=== PATIENT | female | born 1980 | race Caucasian/White ===

== ENCOUNTER 2016-12-21 12:32 | Emergency (ER) | payer MEDICAID, OTHER ==
[~2016-12-21] VITALS: Ht 162.6 cm; Wt 86.4 kg
[~2016-12-21 12:32] MED LIST: IBUP-232 PO
[2016-12-21 12:44] VITALS: BP 129/85; PULSE 111; RESP 18; TEMP 98.8; O2SAT 98
[2016-12-21 12:54] LABS: BLOOD, URINE NEG (NEG); GLUCOSE,URINE NEG (NEG); KETONE, URINE NEG (NEG)
[2016-12-21 12:59] LABS: NITRITE,URINE POS (NEG)
[2016-12-21 13:00] LABS: BACTERIA, URINE MANY /hpf; METHOD OF COLLECTION CLEAN CATCH; URINE COLOR YELLOW (YELLW/STRAW)
[2016-12-21 13:01] LABS: COMMENT (UR) CULTURE INDICATED; CULTURE IF INDICATED CULTURE INDICATED
[2016-12-21] MEDS ORDERED: cogentin PO (13:39)
[2016-12-21] MEDS ORDERED: GABA300C5 PO (13:39)
[2016-12-21] MEDS ORDERED: SERO300T PO (13:39)
--- NOTE | 2016-12-21 13:52 | PD ---
HPI Chief Complaint: Flank/Kidney Pain Time Seen by Provider: 13:51 Travel History International Travel<30 days: No Contact w/Intl Traveler<30days: No Traveled to known affect area: No History of Present Illness HPI Patient is a 36-year-old female presenting to the emergency room evaluation of urinary frequency, dysuria, low back pain that has been ongoing for approximately one week. Patient states she has to urinate constantly. She reports mild nausea but no fevers, chills, abdominal pain, chest pain or shortness of breath. PFSH Past Medical History Hx Anticoagulant Therapy: No ADHD: Yes Anemia: Yes ( A CHILD) Asthma: Yes (as child ) Bipolar Disorder: Yes Anxiety: Yes Depression: Yes Heart Rhythm Problems: Yes Chemotherapy: No Chest Pain: Yes Cerebrovascular Accident: No Diminished Hearing: No Endocrine: No Gastrointestinal Disorders: Yes Genitourinary: Yes Hypertension: Yes Kidney Stones: Yes Musculoskeletal: Yes Neurologic: Yes Reproductive: No Respiratory: Yes Immunizations Current: No Schizophrenia: Yes Tetanus Vaccination: < 5 Years Influenza Vaccination: No ?: Not LMP: two weeks ago Menopausal: No : 3 Para: 2 Miscarriage: 1 : 0 Ovarian Cysts: Yes (RIGHT SIDE) Dilation and Curettage (D&C): Yes Tubal Ligation: Yes (2003) Past Surgical History Gynecologic Surgery: Yes (CERVICAL CIRCLAGE; BARTHOLIN CYST I&D MULTIPLE TIMES ON LEFT LABIA) Hysterectomy: No Oral Surgery: Yes (BLOOD CLOT REMOVED FROM TONGUE) Tonsillectomy: Yes Other Surgery: Yes (BLOOD CLOT REMOVED FROM TONGUE IN 2003) Social History Alcohol Use: No (UTO) Tobacco Use: Yes (1PPD.) Substance Use: Yes Allergies-Medications (Allergen,Severity, Reaction): Coded Allergies: *MDRO Multi-Drug Resistant Organism (Verified Adverse Reaction, Unknown, ) ESBL E.coli (urine) - 06/22/2016 & 07/20/16 Reported Meds & Prescriptions Reported Meds & Active Scripts Active Zofran (Ondansetron HCl) 4 Mg Tab 4 Mg PO Q6HR PRN 3 Days Pyridium (Phenazopyridine HCl) 200 Mg Tab 200 Mg PO Q8H PRN 3 Days Keflex (Cephalexin) 500 Mg Cap 500 Mg PO Q6H 7 Days Reported Gabapentin 300 Mg Cap 300 Mg PO BID [cogentin ] Unknown Dose PO BID Seroquel (Quetiapine Fumarate) 300 Mg Tab 300 Mg PO BID Review of Systems Except as stated in HPI: all other systems reviewed are Neg General / Constitutional: No: Fever, Chills Cardiovascular: No: Chest Pain or Discomfort Respiratory: No: Shortness of Breath Gastrointestinal: Positive: Nausea, No: Vomiting, Diarrhea, Abdominal Pain Genitourinary: Positive: Frequency, Dysuria, Flank Pain Physical Exam Narrative GENERAL: Well-nourished, well-developed patient. SKIN: Warm and dry. HEAD: Normocephalic. EYES: No scleral icterus. No injection or drainage. NECK: Supple, trachea midline. No JVD or lymphadenopathy. CARDIOVASCULAR: Regular rate and rhythm without murmurs, gallops, or rubs. RESPIRATORY: Breath sounds equal bilaterally. No accessory muscle use. GASTROINTESTINAL: Abdomen soft, non-tender, nondistended. MUSCULOSKELETAL: No cyanosis, or edema. BACK: Nontender without obvious deformity. Mild right CVA tenderness. Data Data Last Documented VS Vital Signs Date Time Temp Pulse Resp B/P Pulse Ox O2 Delivery O2 Flow Rate FiO2 12/21/16 14:14 92 18 122/61 97 12/21/16 12:44 98.8 Orders Urinalysis - C+S If Indicated (12/21/16 12:39) Ed Urine Pregnancytest Poc (12/21/16 12:39) Urine Culture (12/21/16 12:45) Ceftriaxone Inj (Rocephin Inj) (12/21/16 14:00) Ondansetron Odt (Zofran Odt) (12/21/16 14:00) Iv Access Insert/Monitor (12/21/16 13:52) Ceftriaxone Inj (Rocephin Inj) (12/21/16 14:00) Sodium Chlor 0.9% 1000 Ml Inj (Ns 1000 M (12/21/16 14:00) Labs Laboratory Tests Test 12/21/16 12:45 Urine Collection Type CLEAN CATCH Urine Color YELLOW Urine Turbidity SLIGHT Urine pH 6.0 Urine Specific [place] 1.011 Urine Protein NEG mg/dL Urine Glucose (UA) NEG mg/dL Urine Ketones NEG mg/dL Urine Occult Blood NEG Urine Nitrite POS Urine Bilirubin NEG Urine Leukocyte Esterase TRACE Urine WBC 6-8 /hpf Urine Squamous Epithelial 6-8 /hpf Cells Urine Bacteria MANY /hpf Microscopic Urinalysis Comment CULTURE INDICATED Urine Collection Time 12:45 [facility] Medical Decision Making Medical Screen Exam Complete: Yes Emergency Medical Condition: Yes Interpretation(s) Vital Signs Date Time Temp Pulse Resp B/P Pulse Ox O2 Delivery O2 Flow Rate FiO2 12/21/16 14:14 92 18 122/61 97 12/21/16 12:44 98.8 111 18 129/85 98 Differential Diagnosis Pyelonephritis versus urinary tract infection versus muscle strain versus spasm versus other Narrative Course Patient is a 36-year-old female presenting to the emergency department for evaluation of flank pain, frequency, dysuria. Symptoms ongoing for approximately one week. Patient has CVA tenderness on the right. Urinalysis is positive for nitrites. Patient will be given IV fluids and IV Rocephin in the emergency department. She was mildly tachycardic on arrival, repeat vitals show an improved heart rate. She is encouraged to maintain adequate fluid intake, complete full course of antibiotics as directed, follow up with her primary doctor. She is encouraged return to emergency department for any new or worsening symptoms. Patient verbalizes understanding of discharge instructions. Patient stable for discharge. The patient was told she was prescribed Keflex, she requested a different antibiotics stating that it never works for her. Patient was provided with a prescription for ciprofloxacin Diagnosis Primary Impression: UTI (urinary tract infection) Qualified Code: N39.0 - Urinary tract infection without hematuria, site unspecified Referrals: Primary Care Physician Patient Instructions: General Instructions, Urinary Tract Infection in Women ( ED) Additional Instructions: Increase fluid intake Complete full course of antibiotics as directed Return to emergency department meal a any new or worsening symptoms Follow-up with your primary doctor Med/Other Pt SpecificInfo: Prescription(s) given Scripts Ciprofloxacin 500 Mg [id number] Mg PO BID 7 Days Ref 0 Prov:Nichole Zee 12/21/16 Ondansetron (Zofran)4 Mg Tab4 Mg PO Q6HR PRN (NAUSEA OR VOMITING) 3 Days Ref 0 Prov:Nichole eZe 12/21/16 Phenazopyridine (Pyridium)200 Mg [id number] Mg PO Q8H PRN (DYSURIA) 3 Days Ref 0 Prov:Nichole Zee 12/21/16 Disposition: 01 DISCHARGE HOME Condition: Stable Nichole Zee Dec 21, 2016 13:52
[2016-12-21] MEDS ORDERED: cefTRIAXone INJ 2,000 MG in SODIUM CHLORIDE 0.9% INJ 100 ML IV ONE (14:00)
[2016-12-21] MEDS ORDERED: ONDANSETRON ODT 4 MG TAB PO ONE (14:00)
[2016-12-21] MEDS ORDERED: SODIUM CHLOR 0.9% 1000 ML INJ 1,000 ML IV ONE (14:00)
[2016-12-21 14:14] VITALS: BP 122/61; PULSE 92; RESP 18; O2SAT 97
[2016-12-21] MEDS ORDERED: ZOFR4TAB PO (14:26)
[2016-12-21] MEDS ORDERED: CEPH-460 PO (14:26)
[2016-12-21] MEDS ORDERED: PYRI200T4 PO (14:26)
[2016-12-21] MEDS ORDERED: CIPR500T2 PO (14:46)
[2016-12-21 15:29] VITALS: BP 119/56; PULSE 88; RESP 16; O2SAT 99
[2016-12-22] MEDS ORDERED: BENZ0.5T PO (09:04)
[2017-02-21] MEDS ORDERED: IBUP800T23 PO (15:21)
[2017-02-21] MEDS ORDERED: CIPR-9 PO (16:06)
== END 2016-12-21 15:33 | disposition home or self-care (01) ==
LOC: PHED 12:32 → PHEFT 15:33
DX: N39.0 Urinary tract infection, site not specified (principal); B96.20 Unspecified Escherichia coli [E. coli] as the cause of diseases classified elsewhere
CPT/HCPCS: 81001; 84703; 87077; 87086; 87186; 96361; 96365; 99283; J0696; J7030

== ENCOUNTER 2018-02-28 08:34 | Emergency (ER) | payer MEDICAID, OTHER ==
[~2018-02-28] VITALS: Ht 162.6 cm; Wt 110.0 kg
[~2018-02-28 08:34] MED LIST changes: +BENZ0.5T PO; +CIPR-9 PO; +GABA300C5 PO; -IBUP-232 PO; +IBUP1TAB7 PO; +SERO300T PO
[2018-02-28 08:47] VITALS: BP 163/86; PULSE 116; RESP 24; TEMP 98.4; TEMP 98.7; O2SAT 97
--- NOTE | 2018-02-28 08:49 | PD ---
HPI Chief Complaint: Chest Pain Time Seen by Provider: 08:42 Travel History International Travel<30 days: Yes Contact w/Intl Traveler<30days: Yes Traveled to known affect area: Yes History of Present Illness HPI This 37-year-old female is complaining of chest pain. She is complaining of left-sided chest pain which started last night and has been fairly constant since it started. Pain is aggravated by certain movements. She feels a bit short of breath. She has had some chest pain in the past. She says that she has a history of a left bundle branch block. She thinks she might of had a heart attack in the past but she is not sure. She does have a history of schizophrenia. She denies any recent drug use. 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 She does smoke cigarettes. There is a family history of heart disease in her grandparents. She denies any history of high blood pressure diabetes. She is having pain right now. PFSH Past Medical History Hx Anticoagulant Therapy: No ADHD: Yes Anemia: Yes ( A CHILD) Asthma: Yes (as child ) Bipolar Disorder: Yes Anxiety: Yes Depression: Yes Heart Rhythm Problems: Yes Chemotherapy: No Chest Pain: Yes Cerebrovascular Accident: No Diminished Hearing: No Endocrine: No Gastrointestinal Disorders: Yes Genitourinary: Yes Hypertension: Yes Kidney Stones: Yes Musculoskeletal: Yes Neurologic: Yes Reproductive: No Respiratory: Yes Immunizations Current: No Schizophrenia: Yes Menopausal: No : 3 Para: 2 Miscarriage: 1 : 0 Ovarian Cysts: Yes (RIGHT SIDE) Dilation and Curettage (D&C): Yes Tubal Ligation: Yes (2003) Past Surgical History Gynecologic Surgery: Yes (CERVICAL CIRCLAGE; BARTHOLIN CYST I&D MULTIPLE TIMES ON LEFT LABIA) Hysterectomy: No Oral Surgery: Yes (BLOOD CLOT REMOVED FROM TONGUE) Tonsillectomy: Yes Other Surgery: Yes (BLOOD CLOT REMOVED FROM TONGUE IN 2003) Social History Alcohol Use: No (UTO) Tobacco Use: Yes (1PPD.) Substance Use: Yes Allergies-Medications (Allergen,Severity, Reaction): Coded Allergies: *MDRO Multi-Drug Resistant Organism (Verified Adverse Reaction, Unknown, ) ESBL E.coli (urine) - 06/22/2016 & 07/20/16 Reported Meds & Prescriptions Reported Meds & Active Scripts Active Reported [Yves] Buspirone (Buspirone HCl) 5 Mg Tab Unknown Dose PO DIRECTED Gabapentin 300 Mg Cap 300 Mg PO BID Seroquel (Quetiapine Fumarate) 300 Mg Tab 300 Mg PO BID Review of Systems General / Constitutional: No: Fever, Chills Eyes: No: Diploplia, Blurred Vision HENT: No: Headaches, Vertigo Cardiovascular: Positive: Chest Pain or Discomfort Respiratory: Positive: Shortness of Breath Gastrointestinal: No: Nausea, Vomiting Genitourinary: No: Urgency, Frequency Skin: No Rash Neurologic: No: Weakness, Dizziness Psychiatric: Positive: Disorder of Thought Hematologic/Lymphatic: No: Easy Bruising Physical Exam Narrative GENERAL: Well-developed female SKIN: Focused skin assessment warm/dry. HEAD: Atraumatic. Normocephalic. EYES: Pupils equal and round. No scleral icterus. No injection or drainage. ENT: No nasal bleeding or discharge. Mucous membranes pink and moist. NECK: Trachea midline. No JVD. CARDIOVASCULAR: Regular rate and rhythm. No murmur appreciated. There is some costochondral tenderness the lower sternal area on the left RESPIRATORY: No accessory muscle use. Clear to auscultation. Breath sounds equal bilaterally. GASTROINTESTINAL: Abdomen soft, non-tender, nondistended. Hepatic and splenic margins not palpable. MUSCULOSKELETAL: No obvious deformities. No clubbing. No cyanosis. No edema. NEUROLOGICAL: Awake and alert. No obvious cranial nerve deficits. Motor grossly within normal limits. Normal speech. PSYCHIATRIC: Appropriate mood and affect; insight and judgment normal. Data Data Last Documented VS Vital Signs Date Time Temp Pulse Resp B/P (MAP) Pulse Ox O2 Delivery O2 Flow Rate FiO2 02/28/18 10:36 96 18 144/61 (88) 99 Room Air 02/28/18 08:47 98.4 Orders Orders Complete Blood Count With Diff (02/28/18 08:45) Comprehensive Metabolic Panel (02/28/18 08:45) Troponin I (02/28/18 08:45) B-Type Natriuretic Peptide (02/28/18 08:45) Urinalysis - C+S If Indicated (02/28/18 08:45) D-Dimer (02/28/18 08:45) Chest, Single Ap (02/28/18 08:45) Drug Screen, Random Urine (02/28/18 08:45) Ed Urine Pregnancytest Poc (02/28/18 08:45) Aspirin (Aspirin) (02/28/18 09:00) Urine Culture (02/28/18 09:15) Ct Pulmonary Angiogram (02/28/18 09:56) Iohexol 350 Inj (Omnipaque 350 Inj) (02/28/18 10:30) Labs Laboratory Tests Test 02/28/18 09:00 02/28/18 09:15 White Blood Count 9.2 TH/MM3 Red Blood Count 4.31 MIL/MM3 Hemoglobin 12.4 GM/DL Hematocrit 37.5 % Mean Corpuscular Volume 86.9 FL Mean Corpuscular Hemoglobin 28.9 PG Mean Corpuscular Hemoglobin Concent 33.2 % Red Cell Distribution Width 14.6 % Platelet Count 189 TH/MM3 Mean Platelet Volume 9.4 FL Neutrophils (%) (Auto) 57.4 % Lymphocytes (%) (Auto) 22.8 % Monocytes (%) (Auto) 7.1 % Eosinophils (%) (Auto) 8.7 % Basophils (%) (Auto) 4.0 % Neutrophils # (Auto) 5.2 TH/MM3 Lymphocytes # (Auto) 2.1 TH/MM3 Monocytes # (Auto) 0.7 TH/MM3 Eosinophils # (Auto) 0.8 TH/MM3 Basophils # (Auto) 0.4 TH/MM3 CBC Comment DIFF FINAL Differential Comment D-Dimer Quantitative (PE/DVT) 0.87 MG/L FEU Blood Urea Nitrogen 10 MG/DL Creatinine 0.78 MG/DL Random Glucose 94 MG/DL Total Protein 7.3 GM/DL Albumin 3.3 GM/DL Calcium Level 8.8 MG/DL Alkaline Phosphatase 67 U/L Aspartate Amino Transf (AST/SGOT) 20 U/L Alanine Aminotransferase (ALT/SGPT) 22 U/L Total Bilirubin 0.1 MG/DL Sodium Level 143 MEQ/L Potassium Level 3.9 MEQ/L Chloride Level 112 MEQ/L Carbon Dioxide Level 19.7 MEQ/L Anion Gap 11 MEQ/L Estimat Glomerular Filtration Rate 83 ML/MIN Troponin I LESS THAN 0.02 NG/ML B-Type Natriuretic Peptide 15 PG/ML Urine Collection Type CLEAN CATCH Urine Color STRAW Urine Turbidity SL CLOUDY Urine pH 6.0 Urine Specific [place] LESS/EQUAL 1.005 Urine Protein NEG mg/dL Urine Glucose (UA) NEG mg/dL Urine Ketones NEG mg/dL Urine Occult Blood NEG Urine Nitrite NEG Urine Bilirubin NEG Urine Urobilinogen 0.2 MG/DL Urine Leukocyte Esterase NEG Urine Squamous Epithelial Cells > 8 /hpf Urine Amorphous Sediment MOD Urine Bacteria MANY /hpf Microscopic Urinalysis Comment CULTURE INDICATED Urine Collection Time 0915 Urine Opiates Screen NEG Urine Barbiturates Screen NEG Urine Amphetamines Screen NEG Urine Benzodiazepines Screen NEG Urine Cocaine Screen NEG Urine Cannabinoids Screen NEG MDM Medical Decision Making Medical Screen Exam Complete: Yes Emergency Medical Condition: Yes Medical Record Reviewed: Yes Differential Diagnosis Differential includes chest wall pain, coronary artery disease, pulmonary embolus Narrative Course D-dimer was done to screen for pulmonary embolus and is come back at 0.87. Because of this a CTA has been done which has been read as negative. EKG shows left bundle branch block. Review of previous chart shows that she has had left bundle branch block in the past year is unchanged from her prior EKGs. Troponin is normal. On reevaluation she has been reasonably comfortable. Repeat exam she has persistent left costochondral tenderness. I suspect this is chest wall pain. Diagnosis Primary Impression: Chest wall pain Disposition: 01 DISCHARGE HOME Condition: Stable Kelvin Brambila MD Feb 28, 2018 08:49
[2018-02-28] MEDS ORDERED: [UNRECOGNIZED DRUG - OTHER] (08:55)
[2018-02-28] MEDS ORDERED: BUSP5TAB PO (08:55)
[2018-02-28] MEDS ORDERED: ASPIRIN 325 MG TAB PO ONE (09:00)
[2018-02-28 09:12] LABS: AUTOMATED NEUTROPHIL # 5.2 TH/MM3 (1.8-7.7); BASOPHIL # 0.4 TH/MM3 (0-0.2); EOSINOPHIL # 0.8 TH/MM3 (0-0.4); EOSINOPHIL % 8.7 % (0.0-4.0); HEMATOCRIT 37.5 % (35.0-46.0); HEMOGLOBIN 12.4 GM/DL (11.6-15.3); LYMPH % 22.8 % (9.0-44.0); LYMPHOCYTE # 2.1 TH/MM3 (1.0-4.8); MEAN CELL VOLUME 86.9 FL (80.0-100.0); MEAN CORPUSCULAR HEMOGLOBIN 28.9 PG (27.0-34.0); MEAN CORPUSCULAR HGB CONC 33.2 % (32.0-36.0); MEAN PLATELET VOLUME 9.4 FL (7.0-11.0); MONO % 7.1 % (0.0-8.0); MONOCYTE # 0.7 TH/MM3 (0-0.9); NEUT % 57.4 % (16.0-70.0); PLATELET COUNT 189 TH/MM3 (150-450); RED BLOOD COUNT 4.31 MIL/MM3 (4.00-5.30); RED CELL DISTRIBUTION WIDTH 14.6 % (11.6-17.2); WHITE BLOOD COUNT 9.2 TH/MM3 (4.0-11.0)
--- NOTE | 2018-02-28 09:12 | RADRPT ---
EXAM DATE/TIME: 02/28/2018 08:50 [facility] COMPARISON: CHEST SINGLE AP, July 05, 2015, 22:37. INDICATIONS : Chest pain. MEDICAL HISTORY : Myocardial infarction. Congestive heart failure. Chronic obstructive pulmonary disease. Hypertens ion. Asthma. Sleep apnea. Diabetic. SURGICAL HISTORY : Tonsillectomy. Tubal ligation. D& C ENCOUNTER: Initial ACUITY: 1 day PAIN SCORE: 6/10 LOCATION: chest FINDINGS: A single view of the chest demonstrates bilateral upper lobe densities. Lung bases are clear. Heart n ormal in size. The cardiomediastinal contours are unremarkable. Osseous structures are intact. CONCLUSION: Bilateral upper lobe densities. Repeat PA and lateral views of the chest are recommended. Aren Wellington MD on February 28, 2018 at 9:10 Board Certified Radiologist. This report was verified electronically.
[2018-02-28 09:27] LABS: BILIRUBIN, URINE NEG (NEG); BLOOD, URINE NEG (NEG); GLUCOSE,URINE NEG (NEG); KETONE, URINE NEG (NEG); NITRITE,URINE NEG (NEG); URINE LEUKOCYTE ESTERASE NEG (NEG)
[2018-02-28 09:33] LABS: URINE COLOR STRAW (YELLW/STRAW)
[2018-02-28 09:36] LABS: AMORPHOUS SEDIMENT, URINE MOD; BACTERIA, URINE MANY /hpf; SQUAMOUS EPITHELIAL CELL URINE > 8 /hpf (0-5)
[2018-02-28 09:50] LABS: ALBUMIN 3.3 GM/DL (3.4-5.0); CALCIUM 8.8 MG/DL (8.5-10.1)
[2018-02-28 09:51] LABS: BLOOD UREA NITROGEN 10 MG/DL (7-18); GLUCOSE,RANDOM 94 MG/DL (74-106)
[2018-02-28 09:54] LABS: AST (GOT) 20 U/L (15-37); CREATININE 0.78 MG/DL (0.50-1.00); GLOMERULAR FILTRATION RATE 83 ML/MIN (>89)
[2018-02-28 09:55] LABS: CHLORIDE 112 MEQ/L (98-107); SODIUM (NA) 143 MEQ/L (136-145); TOTAL PROTEIN 7.3 GM/DL (6.4-8.2)
[2018-02-28 09:57] LABS: ALKALINE PHOSPHATASE 67 U/L (45-117)
[2018-02-28 09:58] LABS: ALT (GPT) 22 U/L (10-53)
[2018-02-28 10:14] LABS: BICARBONATE 19.7 MEQ/L (21.0-32.0); TROPONIN I LESS THAN 0.02 NG/ML (0.02-0.05)
[2018-02-28 10:17] LABS: TOTAL BILIRUBIN ADULT 0.1 MG/DL (0.2-1.0)
[2018-02-28] MEDS ORDERED: IOHEXOL 350 MG/ML 10 ML VIAL (for RAD DIAG) IVCONTRAST ONE (10:30)
[2018-02-28 10:36] VITALS: BP 144/61; PULSE 96; RESP 18; O2SAT 99
--- NOTE | 2018-02-28 10:40 | RADRPT ---
EXAM DATE/TIME: 02/28/2018 10:16 [facility] COMPARISON: No previous studies available for comparison. INDICATIONS : Left sided chest pain with minimal shortness of breath. Elevated D-dimer. IV CONTRAST: 65 cc Omnipaque 350 (iohexol) IV RADIATION DOSE: 21.64 CTDIvol (mGy) MEDICAL HISTORY : Hypertension. SURGICAL HISTORY : Tubal ligation. Left bundle branch block. ENCOUNTER: Initial ACUITY: 1 day PAIN SCALE: 4/10 LOCATION: Left chest TECHNIQUE: Volumetric scanning of the chest was performed using a pulmonary embolism protocol MIP images were re constructed. Using automated exposure control and adjustment of the mA and/or kV according to patien t size, radiation dose was kept as low as reasonably achievable to obtain optimal diagnostic quality images. DICOM format image data is available electronically for review and comparison. Follow-up recommendations for detected pulmonary nodules are based at a minimum on nodule size and pa tient risk factors according to Fleischner Society Guidelines. FINDINGS: PULMONARY ARTERIES: No filling defects are seen in the pulmonary arteries through the segmental level. LUNGS: There is no consolidation or pneumothorax . No concerning pulmonary nodule is visualized. PLEURAE: There is no pleural thickening or pleural effusion. MEDIASTINUM: There is good visualization of the great vessels of the middle mediastinum. No evidence of mediastin al or hilar adenopathy/mass. MUSCULOSKELETAL: Within normal limits for patient age. MISCELLANEOUS: The visualized upper abdominal organs demonstrate no acute abnormality. CONCLUSION: 1. No evidence for pulmonary embolism. 2. No infiltrate. Aren Wellington MD on February 28, 2018 at 10:35 Board Certified Radiologist. This report was verified electronically.
[2018-02-28] MEDS ORDERED: KETOROLAC TROMETHAMINE 30 MG/ML (IVP) VIAL IV PUSH ONE (12:00)
--- NOTE | 2018-03-01 23:22 | EKG ---
Date Performed: 02/28/2018 Time Performed: 08:40:20 PTAGE: 37 years EKG: SINUS TACHYCARDIA LEFT BUNDLE BRANCH BLOCK ABNORMAL ECG PREVIOUS TRACING : 07/16/2016 14.13 Compared to previous tracing, LBBB now present DOCTOR: Khalida Martin Interpretating Date/Time 03/01/2018 23:20:53
== END 2018-02-28 11:14 | disposition home or self-care (01) ==
LOC: PHED 08:34
DX: R07.89 Other chest pain (principal); I44.7 Left bundle-branch block, unspecified; F17.210 Nicotine dependence, cigarettes, uncomplicated; F20.9 Schizophrenia, unspecified; F31.9 Bipolar disorder, unspecified; F90.9 Attention-deficit hyperactivity disorder, unspecified type; I10 Essential (primary) hypertension; R06.02 Shortness of breath; R82.99 Other abnormal findings in urine; Z79.899 Other long term (current) drug therapy
CPT/HCPCS: 71045; 71275; 80053; 80307; 81001; 83880; 84484; 84703; 85025; 85379; 87086; 93005; 99285; Q9967